=== PATIENT | male | born 1995 | race African-American/Black ===

== ENCOUNTER 2016-08-12 16:09 | Emergency (ER) | payer OTHER, MEDICAID ==
[~2016-08-12] VITALS: Ht 177.8 cm; Wt 83.9 kg
[2016-08-12 18:09] VITALS: BP 150/76
[2016-08-12] MEDS ORDERED: IBUPROFEN 600 MG TAB PO ONE (20:30)
[2016-08-12] MEDS ORDERED: CYCLOBENZAPRINE HCL 10 MG TAB PO ONE (20:30)
== END 2016-08-12 20:55 | disposition home or self-care (01) ==
LOC: EDBD 16:09 → ER 16:22
DX: S86.912A Strain of unspecified muscle(s) and tendon(s) at lower leg level, left leg, initial encounter (principal); V43.62XA Car passenger injured in collision with other type car in traffic accident, initial encounter; Y93.89 Activity, other specified; Y99.8 Other external cause status; Y92.89 Other specified places as the place of occurrence of the external cause

== ENCOUNTER 2016-11-30 11:04 | Emergency (ER) | payer OTHER, MEDICAID ==
[~2016-11-30] VITALS: Ht 175.3 cm; Wt 86.2 kg
[2016-11-30 12:48] VITALS: BP 143/92
== END 2016-11-30 13:49 | disposition home or self-care (01) ==
LOC: ER 11:06
DX: L42 Pityriasis rosea (principal)

== ENCOUNTER 2017-04-09 16:06 | Emergency (ER) | payer MEDICAID, OTHER ==
[~2017-04-09] VITALS: Ht 175.3 cm; Wt 81.6 kg
[2017-04-09 16:23] VITALS: BP 132/85
[2017-04-09 17:12] LABS: Basophils # (auto) 0.1 uL; Eosinophils # (auto) 0.1 uL; Eosinophils % (auto) 0.8 % (0.0-7.0); Hematocrit 41.6 % (41.0-53.0); Hemoglobin 13.9 g/dL (13.5-17.5); Lymphocytes # (auto) 2.5 uL; Lymphocytes % (auto) 27.7 % (10.0-50.0); Mean Corpuscular Hgb Conc. 33.5 g/dL (32.0-36.0); Mean Corpuscular Volume 89.5 fL (80.0-100.0); Monocytes # (auto) 0.8 uL; Monocytes % (auto) 8.8 % (0.0-12.0); Neutrophils # (auto) 5.7 uL; Neutrophils % (auto) 61.7 % (37.0-80.0); Nucleated Red Blood Cells % 0.3 %; Platelet Count (auto) 203 10^3/uL (140-450); Red Blood Cells 4.65 10^6/uL (4.5-5.90); Red Cell Distribution Width 13.4 % (11.8-14.3); White Blood Cell 9.2 10^3/uL (4.4-10.8)
[2017-04-09 17:28] LABS: Albumin 3.9 g/dL (3.4-5.0); BUN/Creatinine Ratio 14.3; Calcium 8.6 mg/dL (8.5-10.1); Potassium 3.8 mmol/L (3.5-5.1)
[2017-04-09 17:30] LABS: Bilirubin, Total 1.9 mg/dL (0.2-1.0); Total Protein 7.8 g/dL (6.4-8.2)
[2017-04-09 19:52] LABS: Urine Bacteria NONE SEEN /hpf (None Seen); Urine Blood Negative /uL (Negative); Urine Mucus FEW (None Seen); Urine WBC 1 /hpf (0 - 3)
[2017-04-09 20:10] LABS: Amphetamine Screen, Urine NEGATIVE (NEGATIVE); Barbiturate Scree,Urine NEGATIVE (NEGATIVE); Benzodiazephine Screen, Urine NEGATIVE (NEGATIVE); Cannabinoid Screen, Urine POSITIVE (NEGATIVE); Cocaine Screen, Urine NEGATIVE (NEGATIVE); Opiate Scree,Urine NEGATIVE (NEGATIVE); Phencyclidine Screen, Urine NEGATIVE (NEGATIVE)
== END 2017-04-09 23:19 | disposition left against medical advice (07) ==
LOC: ER 16:12
DX: R42 Dizziness and giddiness (principal); R53.1 Weakness; R00.0 Tachycardia, unspecified
CPT/HCPCS: 36415; 80053; 80307; 81001; 83605; 85025; 93005